=== PATIENT | male | born 1960 | race Caucasian/White ===

== ENCOUNTER 2019-10-07 23:09 | Emergency (ER) | payer MEDICAID ==
[~2019-10-07] VITALS: Ht 182.9 cm; Wt 68.0 kg
[2019-10-08] MEDS ORDERED: ADULT LOW DOSE81 MG PO (00:14)
[2019-10-08] MEDS ORDERED: AUGMENTIN 875-1 EACH PO (00:14)
[2019-10-08] MEDS ORDERED: TIROSINT25 MCG PO (00:14)
[2019-10-08] MEDS ORDERED: LITHIUM CARBON600 MG PO (00:16)
[2019-10-08] MEDS ORDERED: CLOZAPINE100 MG PO (00:16)
[2019-10-08] MEDS ORDERED: KEFLEX500 MG PO (01:17)
== END 2019-10-08 02:13 | disposition home or self-care (01) ==
LOC: ED 23:09
DX: T69.022A Immersion foot, left foot, initial encounter (principal); T69.021A Immersion foot, right foot, initial encounter; L03.116 Cellulitis of left lower limb; L03.115 Cellulitis of right lower limb; F20.9 Schizophrenia, unspecified; X58.XXXA Exposure to other specified factors, initial encounter; F17.200 Nicotine dependence, unspecified, uncomplicated; Z79.899 Other long term (current) drug therapy; Z79.82 Long term (current) use of aspirin
CPT/HCPCS: 73630; 80053; 83605; 85025; 85610; 85730; 96374; 99285-25; J3370; J7060

== ENCOUNTER 2022-01-30 12:15 | Emergency (ER) | payer OTHER ==
[~2022-01-30] VITALS: Ht 182.9 cm; Wt 68.0 kg
[~2022-01-30 12:15] MED LIST: ADULT LOW DOSE81 MG PO; AUGMENTIN 875-1 EACH PO; CLOZAPINE100 MG PO; KEFLEX500 MG PO; LITHIUM CARBON600 MG PO; TIROSINT25 MCG PO
[2022-01-30] MEDS ORDERED: ATORVASTATIN CA20 MG PO (12:34)
== END 2022-01-30 14:31 | disposition home or self-care (01) ==
LOC: ED 12:15
DX: J10.1 Influenza due to other identified influenza virus with other respiratory manifestations (principal); F17.200 Nicotine dependence, unspecified, uncomplicated; Z20.822 Contact with and (suspected) exposure to COVID-19; Z79.82 Long term (current) use of aspirin; Z79.899 Other long term (current) drug therapy
CPT/HCPCS: 71046; 87502; 99285-25; A9270; C9803; U0003